=== PATIENT | male | born 1940 | race Caucasian/White ===

== ENCOUNTER 2021-04-28 14:10 | Emergency (ER) | payer OTHER ==
[~2021-04-28] VITALS: Ht 180.3 cm; Wt 91.2 kg
[2021-04-28 14:10] VITALS: BP_SYST 148
[2021-04-28 15:25] VITALS: BP_SYST 148
== END 2021-04-28 15:25 | disposition home or self-care (01) ==
LOC: SED 14:10
DX: M25.572 Pain in left ankle and joints of left foot (principal); I10 Essential (primary) hypertension
CPT/HCPCS: 99283